=== PATIENT | female | born 1975 | race Caucasian/White ===

== ENCOUNTER 2016-12-11 15:01 | Emergency (ER) | payer OTHER ==
[~2016-12-11] VITALS: Ht 157.5 cm; Wt 75.2 kg
[2016-12-11 15:09] VITALS: TEMP 36.8; Ht 157.5 cm; Wt 75.2 kg
[2016-12-11] MEDS ORDERED: IBUP-103 PO (15:38)
[2016-12-11] MEDS ORDERED: OXYC1TAB3 PO (15:51)
--- NOTE | 2016-12-11 15:51 | EMERGENCY ROOM VISIT NOTE ---
ED Visit Note First contact with patient: 15:22 CHIEF COMPLAINT: Low back pain HISTORY OF PRESENT ILLNESS: This 41-year-old female patient presents to the emergency department ambulatory complaining of pain in the low back which began yesterday. The patient states that she was moving [employer] and fell backwards to the wall and twisted her back. She states the pain radiates down the left leg on occasion. The pain was gradual in onset, is now constant and worse with movement. The patient notes the pain as sharp and a 7/10. The patient has taken nothing for relief of the pain. The patient denies any bowel or bladder difficulties. There has been no leg numbness or weakness, and no change in sensation. No nausea or vomiting or abdominal pain. No chest pain or shortness of breath. The patient has had prior back injuries. The patient states she used to take oxycodone but has not for at least the last 6 months. REVIEW OF SYSTEMS: No dysuria or increased urinary frequency. A 10 system review of systems was completed and pertinent positives and negatives are in the HPI. ALLERGIES: Amoxicillin MEDICATIONS: Advil PMH: Patient denies SOCIAL HISTORY: The patient lives locally. She is a smoker PHYSICAL EXAM: VITALS: Vitals are noted on the nurse's note and reviewed by myself. No abnormalities noted. GENERAL: This is a 41-year-old female, in no acute distress, nondiaphoretic, well-developed well-nourished. SKIN: The skin was without rashes, erythema, edema, or bruising. Capillary refill less than 2 seconds. NECK: Supple without nuchal rigidity. No cervical spine tenderness. No paraspinous muscle tenderness. HEART: Regular rate and rhythm without murmurs gallops or rubs. LUNGS: Clear to auscultation bilaterally without wheezes, rales or rhonchi. ABDOMEN: Positive bowel sounds x 4. Normal tympanic percussion. Soft, nontender, without masses or organomegaly. Hammond sign negative. MUSCULOSKELETAL: No muscle atrophy, erythema, or edema noted of the back. There is mild tenderness over the lumbar spinous processes. There is mild tenderness over the paraspinous muscles on the left. There is no tenderness over the thoracic spine or paraspinous muscles. There are no muscle spasms present. The patient is slow to move around with maximum tenderness with flexion and extension.. Negative straight leg raise test. NEURO: Patient was alert and oriented to person place and time. Normal sensation to light and sharp touch. Deep tendon reflexes 2+ in the lower extremities. Dorsalis pedis pulse 2+ bilaterally. Strength is 5/5 in the lower extremities bilaterally. EMERGENCY DEPARTMENT COURSE: The patient was seen and examined. Previous visits were reviewed. The patient did not fall to the ground. She has had imaging of her back in the recent past. She does not have any neurologic deficit on exam or by history. I do not suspect cauda equina, cord compression or infectious process. The RESIDENTIAL MANAGER was reviewed and the patient has filled only 1 narcotic prescription in the last 1 year and is from this facility for a few day supply. The patient was given a small prescription for oxycodone. She should contact her family doctor to schedule a follow-up appointment for further evaluation and management. She should return to the ER with any worsening symptoms. DIFFERENTIAL DIAGNOSIS: Lumbar strain, degenerative disc disease, spondylolisthesis, herniated disc, spinal stenosis, osteoporosis, fracture, cauda equina syndrome, neoplasm, infection, inflammatory arthritis, among others. DIAGNOSIS: Lumbar strain DISCHARGE INSTRUCTIONS AND TREATMENT: Rest off your feet for 1 to 2 days, ice for 24 hrs then heat to the low back. See your own doctor or an orthopedist in 3-4 days if you are not improving. Ibuprofen 600 mg every 6 hours if needed for the pain. OxyIR 1 tablet every 6 hrs for worse pain. No driving or alcohol use with OxyIR Return if any problems with bowel or bladder function or if loss of sensation/movement of lower extremities. Problem List Medical Problems: (1) Kidney stones Status: Chronic Current/Historical Medications Scheduled PRN Ibuprofen Tab (Advil), 400-600 MG PO Q6H PRN for Pain Oxycodone Ir (Roxicodone Ir), 1 TAB PO Q6 PRN for Pain Allergies Coded Allergies: Amoxicillin (Unverified Allergy, Unknown, GI SYMPTOMS, 03/10/16) Vital Signs Date Time Temp Pulse Resp B/P (MAP) Pulse Ox O2 Delivery O2 Flow Rate FiO2 12/11/16 15:09 36.8 77 18 142/86 100 Room Air Departure Information Impression Primary Impression: Low back pain Dispostion Home / Self-Care Condition GOOD Prescriptions Oxycodone Ir (Roxicodone Ir) 5 Mg Tab 1 TAB PO Q6 Y for Pain, #12 TAB For Initial Treatment Prov: Darlene Pérez PA-C 12/11/16 Referrals No Doctor, Assigned (PCP) Patient Instructions Back Pain - [facility], [facility] Additional Instructions Rest off your feet for 1 to 2 days, ice for 24 hrs then heat to the low back. See your own doctor or an orthopedist in 3-4 days if you are not improving. Ibuprofen 600 mg every 6 hours if needed for the pain. OxyIR 1 tablet every 6 hrs for worse pain. No driving or alcohol use with OxyIR Return if any problems with bowel or bladder function or if loss of sensation/movement of lower extremities.
[2016-12-11 16:35] VITALS: BP 136/79; PULSE 72; O2SAT 98
== END 2016-12-11 16:52 | disposition home or self-care (01) ==
LOC: C.EDB 15:04 → C.EDD 16:52
DX: S39.012A Strain of muscle, fascia and tendon of lower back, initial encounter (principal); W19.XXXA Unspecified fall, initial encounter; Z87.442 Personal history of urinary calculi; F17.210 Nicotine dependence, cigarettes, uncomplicated